=== PATIENT | female | born 1955 | race Caucasian/White ===

== ENCOUNTER 2018-11-24 12:11 | Observation (INO) | payer OTHER ==
[~2018-11-24] VITALS: Ht 165.1 cm; Wt 90.9 kg
[2018-11-24] MEDS ORDERED: LOSARTAN PO (12:30)
[2018-11-24] MEDS ORDERED: CELEBREX 100 M100 MG PO (12:30)
[2018-11-24] MEDS ORDERED: HCTZ PO (12:30)
[2018-11-24] MEDS ORDERED: CRESTOR20 MG PO (12:31)
[2018-11-24] MEDS ORDERED: BAYER CHEWABLE81 MG PO (12:31)
[2018-11-24] MEDS ORDERED: NIASPAN500 MG PO (12:31)
[2018-11-24] MEDS ORDERED: K-DUR20 MEQ PO (12:31)
[2018-11-24] MEDS ORDERED: OMEGA-3100 MG PO (12:32)
[2018-11-24] MEDS ORDERED: CO Q-10200 MG PO (12:32)
[2018-11-24] MEDS ORDERED: CENTRUM SILVER1 EAC3 PO (12:32)
[2018-11-24] MEDS ORDERED: AMOXICILLIN500 M1 PO (12:33)
[2018-11-24 13:09] LABS: BASOPHILS 0.1 % (0-2); EOSINOPHILS 0 % (0-7); HEMATOCRIT 40.6 % (36.0-48.0); HEMOGLOBIN 13.4 g/dL (12-16); IMMATURE GRANULOCYTES 0.3 % (0-5); LYMPHOCYTES 16.3 % (15-50); MCH 29.5 pg (26.0-34.0); MCV 89.2 fL (80.0-100.0); MEAN PLATELET VOLUME 10.1 fL (7.4-10.4); MONOCYTES 5.3 % (2-11); PLATELET COUNT 241 10x3/uL (130-400); RBC 4.55 10x6/uL (4.00-5.40); RDW 14.1 % (11.5-14.5); WBC 11.5 10x3/uL (4.8-10.8)
[2018-11-24 13:24] LABS: ALBUMIN 3.5 g/dL (3.4-5.0); ALKALINE PHOSPHATASE 73 U/L (46-116); ALT (SGPT) 23 U/L (10-68); BILIRUBIN - TOTAL 0.33 mg/dL (0.2-1.3); CALC OSMOLALITY 284 mosm/kg (275-300); CALCIUM 9.1 mg/dL (8.5-10.1); CARBON DIOXIDE 29.3 mmol/L (21.0-32.0); CHLORIDE - SERUM 105 mmol/L (98-107); CREATININE - SERUM 0.7 mg/dL (0.6-1.3); GLUCOSE 102 mg/dL (74-106); SODIUM 141 mmol/L (136-145); UREA NITROGEN 23 mg/dL (7-18); eGFR NON AFRICAN AMERICAN 90 mL/min (90-120)
[2018-11-24 13:34] LABS: CKMB 2.5 U/L (0.0-3.6); CREATINE KINASE 104 UL (21-215); TROPONIN-I < 0.017 ng/mL (0.000-0.060)
[2018-11-24 13:50] VITALS: BP 153/92
[2018-11-24 14:21] LABS: APTT 23.5 SECONDS (22.8-39.4); INR 0.94 (0.85-1.17); PROTIME 12.1 SECONDS (11.6-15.0)
[2018-11-24 14:22] LABS: D-DIMER-QUANTITATIVE 0.29 ug/mLFEU (0.20-0.54)
[2018-11-24 14:25] VITALS: BP 110/46
[2018-11-24 14:56] VITALS: BP 165/87
--- NOTE | 2018-11-24 16:30 | NUR ---
ADMISSION ORDER PLACED AT 1622, AGUS LLOYD CALLED FOR A ROOM AT 1625, ROOM#[id number] @ 1630 RECEIVED.
[2018-11-24 18:49] VITALS: BP 134/71; Ht 165.1 cm; Wt 90.9 kg
--- NOTE | 2018-11-24 19:10 | NUR ---
BEDSIDE REPORT RECEIVED FROM DAY SHIFT. PT CARE ASSUMED. INTRODUCED SELF AND WROTE NAME ON BOARD. PT SITTING UP IN BED, AAOX4, DENIES PAIN OR ANY OTHER NEEDS AT THIS TIME. FAMILY AT BEDSIDE. BED IN LOWEST POSITION, SR X2, CALL LIGHT WITHIN REACH. WILL CONTINUE TO MONITOR.
[2018-11-24 20:00] VITALS: BP 108/55
[2018-11-25] VITALS: BP 108/50
--- NOTE | 2018-11-25 00:26 | NUR ---
PT LYING IN BED, EYES CLOSED, RESPIRATIONS EVEN AND NONLABORED, NO S/S OF DISTRESS. BED IN LOWEST POSITION, SR X2, CALL LIGHT WITHIN REACH. WILL CONTINUE TO MONITOR.
[2018-11-25 06:23] LABS: CALC OSMOLALITY 284 mosm/kg (275-300); CALCIUM 8.4 mg/dL (8.5-10.1); CARBON DIOXIDE 24.9 mmol/L (21.0-32.0); CHLORIDE - SERUM 107 mmol/L (98-107); CREATININE - SERUM 0.5 mg/dL (0.6-1.3); GLUCOSE 112 mg/dL (74-106); POTASSIUM - SERUM 4.2 mmol/L (3.5-5.1); SODIUM 141 mmol/L (136-145); UREA NITROGEN 20 mg/dL (7-18); eGFR NON AFRICAN AMERICAN > 90 mL/min (90-120)
[2018-11-25 06:34] LABS: BASOPHILS 0 % (0-2); EOSINOPHILS 0 % (0-7); HEMATOCRIT 39.3 % (36.0-48.0); HEMOGLOBIN 12.7 g/dL (12-16); IMMATURE GRANULOCYTES 0.4 % (0-5); LYMPHOCYTES 16.7 % (15-50); MCH 28.9 pg (26.0-34.0); MCHC 32.3 g/dL (31.0-37.0); MCV 89.3 fL (80.0-100.0); MEAN PLATELET VOLUME 10.3 fL (7.4-10.4); MONOCYTES 4.4 % (2-11); NEUTROPHILS 78.5 % (40-80); PLATELET COUNT 215 10x3/uL (130-400); RDW 14.1 % (11.5-14.5)
[2018-11-25 07:05] LABS: WBC 8.1 10x3/uL (4.8-10.8)
[2018-11-25 08:59] VITALS: BP 107/65
[2018-11-25] MEDS ORDERED: FLORAJEN3 CAPS460 MG PO (09:44)
--- NOTE | 2018-11-25 10:12 | NUR ---
PATIENT IS SITTING UP IN BED. SHE DID COMPLAIN OF PAIN AND WAS TREATED FOR THAT PAIN ORDERED. DENIES ANY NEEDS AT THIS TIME. REPORTS REDUCED PAIN IN HER CHEST AND FACE TODAY.
[2018-11-25] MEDS ORDERED: MIRALAX17 GM PO (11:43)
[2018-11-25] MEDS ORDERED: DULCOLAX10 MG/SUPP RC (11:44)
[2018-11-25] MEDS ORDERED: TYLENOL W/CODEI1 TAB PO (13:08)
--- NOTE | 2018-11-25 13:48 | NUR ---
PATIENT BEING DISCHARGED. ALL DISCHARGE TEACHING COMPLETE AND PAPERS SIGNED. IV REMOVED WITH CATHETER INTACT. PATIENT TOLERATED. PATIENT IS LEAVING THE FLOOR BY WHEEL CHAIR. ALL PATIENT BELONGINGS HAVE BEEN REMOVED FROM THE ROOM.HEAD TO TOE ASSESSMENT COMPLETE. AGREE WITH THE DORCTORS THAT THIS PATIENT IS READY FOR DISCHARGE.
--- NOTE | 2018-11-28 09:57 | MORECARE ---
CASE MANAGEMENT DISCHARGE SUMMARY PATIENT: PATRICK ARTEAGA UNIT: [id number] ADM DATE: 11/24/18 AGE: 63 : 57 SEX: F ROOM/BED: D.2140 AUTHOR: CHEO YEE PHYSICIAN: REFERRING PHYSICIAN: ERIC BLANCO MD DATE OF SERVICE: 11/28/18 Discharge Plan Patient Name: PATRICK ARTEAGA Facility: [facility]:[place] : 1955 Planned Disposition: Home Anticipated Discharge Date: 11/25/18 Discharge Date: 11/25/2018 Expected LOS: 1 Initial Reviewer: [id number] Initial Review Date: 11/28/2018 Generated: 11/28/18 10:56 am Patient Name: PATRICK ARTEAGA Page [id number] at 0957 All edits/amendments must be made on the electronic document DICTATION DATE: 11/28/1856 OCCUPATIONAL THERAPY ASST: ROSANGELA 11/28/1856 RPT#: [id number] DC DATE:11/25/18 STATUS: DIS IN [facility] [address] [place] [address] END OF REPORT
== END 2018-11-25 13:55 | disposition home or self-care (01) ==
LOC: D.ER 12:11 → OBSVTIME 16:30 → D.M2 16:30
PROVIDERS: Family Medicine; ADMIT Emergency Medicine; ATTEND Emergency Medicine
DX: L03.211 Cellulitis of face (principal); L03.221 Cellulitis of neck; R07.9 Chest pain, unspecified; K21.9 Gastro-esophageal reflux disease without esophagitis; M19.90 Unspecified osteoarthritis, unspecified site; I10 Essential (primary) hypertension; E78.5 Hyperlipidemia, unspecified

== ENCOUNTER → 2019-06-22 18:39 | Outpatient (CLI) | payer OTHER ==
[2018-11-24 18:49] VITALS: BMI 33.3
[~2019-06-22 18:39] MED LIST: AMOXICILLIN500 M1 PO; BAYER CHEWABLE81 MG PO; CELEBREX 100 M100 MG PO; CENTRUM SILVER1 EAC3 PO; CO Q-10200 MG PO; CRESTOR20 MG PO; DULCOLAX10 MG/SUPP RC; FLORAJEN3 CAPS460 MG PO; HCTZ PO; K-DUR20 MEQ PO; LOSARTAN PO; MIRALAX17 GM PO; NIASPAN500 MG PO; OMEGA-3100 MG PO; TYLENOL W/CODEI1 TAB PO
== END | disposition home or self-care (01) ==
LOC: D.MAMMO 15:30
PROVIDERS: ATTEND Emergency Medicine
DX: Z12.31 Encounter for screening mammogram for malignant neoplasm of breast (principal)